=== PATIENT | female | born 1990 | race Caucasian/White ===

== ENCOUNTER 2016-06-18 18:06 | Emergency (ER) | payer OTHER ==
[~2016-06-18] VITALS: Ht 165.1 cm; Wt 83.0 kg
[~2016-06-18 18:06] MED LIST: CYCL5TAB PO; DICL75 PO; NORC7.5T PO; PREN0.01 PO; ZOFR8TAB4 PO
[2016-06-18 18:08] VITALS: BP 117/81; PULSE 99; RESP 17; TEMP 97.9; O2SAT 99
[2016-06-18] MEDS ORDERED: JUNETAB2 PO (18:24)
[2016-06-18] MEDS ORDERED: SODIUM CHLOR 0.9% 1000 ML INJ 1,000 ML IV ONE (18:26)
[2016-06-18] MEDS ORDERED: SODIUM CHLORIDE 0.9% FLUSH 10 ML FLUSH IVF PRN (18:30)
--- NOTE | 2016-06-18 18:37 | PD ---
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 Patient reports that she had her last normal mental cycle on April 28, 2016, patient reports that she was a week late on her period and reports that she did take a test at that time which was negative. She did call her index editor, Dr. Marion and was instructed to continue her control pills. Patient reports that she thought that something was off as she had not gotten her period , reports that this week, she took 3 tests all which were positive. Patient reports that she had some spotting and bleeding and lower abdominal cramping one hour prior to arrival to ER. Patient was concerned that she may be miscarrying so she came to the ER for evaluation. Patient denies abdominal cramping or pain at this time. PFSH Past Medical History Autoimmune Disease: No Blood Disorders: No Cancer: No Cardiovascular Problems: No Diabetes: No Diminished Hearing: No Endocrine: No Gastrointestinal Disorders: Yes (GI BLEED) GERD: Yes Glaucoma: No Genitourinary: No Hepatitis: No Hypertension: No Immune Disorder: No Implanted Vascular Access Dvce: No Medical other: No Musculoskeletal: No Neurologic: No Psychiatric: No Reproductive: No Respiratory: No Thyroid Disease: No Influenza Vaccination: No ?: Unknown LMP: 04/28/16 Past Surgical History Abdominal Surgery: No Section: Yes Ear Surgery: No Endocrine Surgery: No Genitourinary Surgery: No Gynecologic Surgery: No Neurologic Surgery: No Oral Surgery: No Pacemaker: No Thoracic Surgery: No Other Surgery: No Social History Alcohol Use: Yes (OCCASIONAL) Tobacco Use: No Substance Use: No Allergies-Medications (Allergen,Severity, Reaction): Coded Allergies: No Known Allergies (Verified , 06/18/16) Reported Meds & Prescriptions Reported Meds & Active Scripts Active Reported (Norethindrone-Ethinyl Estradiol) 1.5-30 Mg-Mcg Tab 1 Tab PO DAILY Review of Systems General / Constitutional: No: Fever Eyes: No: Visual changes HENT: No: Headaches Cardiovascular: No: Chest Pain or Discomfort Respiratory: No: Shortness of Breath Gastrointestinal: No: Abdominal Pain Genitourinary: Positive: Vaginal Bleeding, No: Dysuria Musculoskeletal: No: Pain Skin: No Rash Neurologic: No: Weakness Psychiatric: No: Depression Endocrine: No: Polydipsia Hematologic/Lymphatic: No: Easy Bruising Physical Exam Narrative GENERAL: No acute distress, nontoxic SKIN: Focused skin assessment warm/dry. HEAD: Atraumatic. Normocephalic. EYES: Pupils equal and round. No scleral icterus. No injection or drainage. ENT: No nasal bleeding or discharge. Mucous membranes pink and moist. NECK: Trachea midline. No JVD. CARDIOVASCULAR: Regular rate and rhythm. No murmur appreciated. RESPIRATORY: No accessory muscle use. Clear to auscultation. Breath sounds equal bilaterally. GASTROINTESTINAL: Abdomen soft, non-tender, nondistended. Hepatic and splenic margins not palpable. : exam preformed with RN at bedside. Patient no light brown vaginal discharge. Patient with no CMT or adnexal tenderness. Cervical os is closed MUSCULOSKELETAL: No obvious deformities. No clubbing. No cyanosis. No edema. NEUROLOGICAL: Awake and alert. No obvious cranial nerve deficits. Motor grossly within normal limits. Normal speech. PSYCHIATRIC: Appropriate mood and affect; insight and judgment normal. Data Data Last Documented VS Vital Signs Date Time Temp Pulse Resp B/P Pulse Ox O2 Delivery O2 Flow Rate FiO2 06/18/16 18:08 97.9 99 17 117/81 99 Orders Beta Hcg (Quant/Titer) (06/18/16 18:26) Complete Blood Count With Diff (06/18/16 18:26) Basic Metabolic Panel (Bmp) (06/18/16 18:26) Gc And Chlamydia Pcr (06/18/16 18:26) Complete Rh (06/18/16 18:26) Type And Screen (06/18/16 18:26) Wet Prep Profile (06/18/16 18:26) Urinalysis - C+S If Indicated (06/18/16 18:26) Iv Access Insert/Monitor (06/18/16 18:26) Sodium Chloride 0.9% Flush (Ns Flush) (06/18/16 18:30) Sodium Chlor 0.9% 1000 Ml Inj (Ns 1000 M (06/18/16 18:26) Ed Urine Pregnancytest Poc (06/18/16 18:26) MDM Medical Decision Making Medical Screen Exam Complete: Yes Emergency Medical Condition: Yes Interpretation(s) Vital Signs Date Time Temp Pulse Resp B/P Pulse Ox O2 Delivery O2 Flow Rate FiO2 06/18/16 18:08 97.9 99 17 117/81 99 Differential Diagnosis Threatened miscarriage versus miscarriage versus irregular vaginal bleeding with versus ectopic Narrative Course 25-year-old female who is [id number], presents to emergency room with complaints of irregular vaginal spotting and bleeding and cramping. Patient reports that her last take her menstrual cycle was on April 28, 2016. Patient estimated gestational age would be 7 weeks and 2 days. On pelvic exam, patient had some light brown vaginal discharge. Patient with no abdominal pain at this time. Plan to obtain blood work including hCG Quant. Jessika Bansal DO June 18, 2016 18:37
[2016-06-18 19:05] VITALS: BP 113/64; PULSE 89; RESP 16; TEMP 99.1; O2SAT 98
[2016-06-18 19:16] LABS: AUTOMATED NEUTROPHIL # 10.1 TH/MM3 (1.8-7.7); BASOPHIL # 0.4 TH/MM3 (0-0.2); BASOPHIL % 2.4 % (0.0-2.0); EOSINOPHIL # 0.1 TH/MM3 (0-0.4); EOSINOPHIL % 0.5 % (0.0-4.0); HEMATOCRIT 41.2 % (35.0-46.0); LYMPHOCYTE # 3.2 TH/MM3 (1.0-4.8); MEAN CELL VOLUME 73.2 FL (80.0-100.0); MEAN CORPUSCULAR HEMOGLOBIN 23.4 PG (27.0-34.0); NEUT % 68.1 % (16.0-70.0); PLATELET COUNT 467 TH/MM3 (150-450); RED BLOOD COUNT 5.62 MIL/MM3 (4.00-5.30); RED CELL DISTRIBUTION WIDTH 15.5 % (11.6-17.2)
[2016-06-18 19:20] LABS: POTASSIUM 4.1 MEQ/L (3.5-5.1)
[2016-06-18 19:24] LABS: BICARBONATE 23.4 MEQ/L (21.0-32.0)
[2016-06-18 19:31] LABS: BLOOD, URINE TRACE (NEG); GLUCOSE,URINE NEG (NEG); KETONE, URINE TRACE mg/dL (NEG); NITRITE,URINE NEG (NEG); PH, URINE 5.5 (5.0-8.5)
[2016-06-18 19:34] LABS: HEMO FLAGS AUTO DIFF
[2016-06-18 19:36] LABS: URINE COLOR YELLOW (YELLW/STRAW)
[2016-06-18 19:37] LABS: MUCUS URINE MOD /lpf (OCC); RBC, URINE 0-3 /hpf (0-3); SQUAMOUS EPITHELIAL CELL URINE 0-5 /hpf (0-5); WBC, URINE 0-2 /hpf (0-5)
[2016-06-18 19:38] LABS: COMMENT (UR) CULT NOT INDICATED; CULTURE IF INDICATED CULT NOT INDICATED
[2016-06-18 19:43] LABS: PLATELET ESTIMATE SMEAR HIGH (NORMAL); PLATELET MORPHOLOGY NORMAL (NORMAL); SCAN/DIFF AUTO DIFF CONFIRMED
--- NOTE | 2016-06-18 19:59 | PD ---
Data Data Last Documented VS Vital Signs Date Time Temp Pulse Resp B/P Pulse Ox O2 Delivery O2 Flow Rate FiO2 06/18/16 19:05 99.1 89 16 113/64 98 Room Air Orders Beta Hcg (Quant/Titer) (06/18/16 18:26) Complete Blood Count With Diff (06/18/16 18:26) Basic Metabolic Panel (Bmp) (06/18/16 18:26) Gc And Chlamydia Pcr (06/18/16 18:26) Complete Rh (06/18/16 18:) Wet Prep Profile (06/18/16 18:) Urinalysis - C+S If Indicated (06/18/16 18:26) Iv Access Insert/Monitor (06/18/16 18:26) Sodium Chloride 0.9% Flush (Ns Flush) (06/18/16 18:30) Sodium Chlor 0.9% 1000 Ml Inj (Ns 1000 M (06/18/16 18:26) Ed Urine Pregnancytest Poc (06/18/16 18:26) Labs Laboratory Tests Test 06/18/16 06/18/16 06/18/16 18:35 19:00 19:15 Clue Cells (Wet Prep) NONE SEEN Vaginal Trichomonas (Wet Prep) NONE SEEN Vaginal Yeast (Wet Prep) NONE SEEN White Blood Count 15.0 TH/MM3 Red Blood Count 5.62 MIL/MM3 Hemoglobin 13.2 GM/DL Hematocrit 41.2 % Mean Corpuscular Volume 73.2 FL Mean Corpuscular Hemoglobin 23.4 PG Mean Corpuscular Hemoglobin 32.0 % Concent Red Cell Distribution Width 15.5 % Platelet Count 467 TH/MM3 Mean Platelet Volume 7.6 FL Neutrophils (%) (Auto) 68.1 % Lymphocytes (%) (Auto) 21.0 % Monocytes (%) (Auto) 8.0 % Eosinophils (%) (Auto) 0.5 % Basophils (%) (Auto) 2.4 % Neutrophils # (Auto) 10.1 TH/MM3 Lymphocytes # (Auto) 3.2 TH/MM3 Monocytes # (Auto) 1.2 TH/MM3 Eosinophils # (Auto) 0.1 TH/MM3 Basophils # (Auto) 0.4 TH/MM3 CBC Comment AUTO DIFF Differential Comment AUTO DIFF CONFIRMED Platelet Estimate HIGH Platelet Morphology Comment NORMAL Sodium Level 139 MEQ/L Potassium Level 4.1 MEQ/L Chloride Level 105 MEQ/L Carbon Dioxide Level 23.4 MEQ/L Anion Gap 11 MEQ/L Blood Urea Nitrogen 12 MG/DL Creatinine 0.84 MG/DL Estimat Glomerular Filtration 81 ML/MIN Rate Random Glucose 92 MG/DL Calcium Level 8.6 MG/DL Human Chorionic Gonadotropin, 104 MIU/ML Quant Blood Type O POSITIVE Rho(D) Type POSITIVE Urine Color YELLOW Urine Turbidity CLEAR Urine pH 5.5 Urine Specific [place] 1.026 Urine Protein NEG mg/dL Urine Glucose (UA) NEG mg/dL Urine Ketones TRACE mg/dL Urine Occult Blood TRACE Urine Nitrite NEG Urine Bilirubin NEG Urine Leukocyte Esterase NEG Urine RBC 0-3 /hpf Urine WBC 0-2 /hpf Urine Squamous Epithelial 0-5 /hpf Cells Urine Mucus MOD /lpf Microscopic Urinalysis Comment CULT NOT INDICATED MDM Supervised Visit with AUG[facility]O: Yes Narrative Course 25 year-old woman, very early , some cramping and bleeding, signed out to me to follow-up on results of diagnostic testing. Labs show she is Rh+, mildly elevated white count, hCG 104, wet prep negative, serology is pending. Bedside ultrasound performed by Dr. Bansal failed to confirm IUP. At this point, differential diagnosis remains really normal IUP, threatened AB or miscarriage, or ectopic . She is not having any pain at this point. Patient thinks that she is very early . These 3 possibilities were discussed including explicitly that ectopic has not been excluded. She was told she needs repeat blood work in 48 hours. She has an OB , Dr. Marion, who she believes she can get this follow-up with. She'll call tomorrow morning. She agrees that if she cannot get this arranged for 48 hour repeat labs, then she will return to the emergency department to have it drawn. She also agrees to return for any worsening severe pain, or cramping. Diagnosis Primary Impression: Threatened Additional Instruction: Follow-up in 48 hours for repeat beta hCG blood work either with Dr. Marion, or here in the emergency department. Return to the emergency department for any worsening abdominal pain. Med/Other Pt SpecificInfo: No Change to Meds Disposition: 01 DISCHARGE HOME Condition: Stable Roly Davila MD June 18, 2016 19:59
[2016-06-18 20:23] VITALS: BP 129/68
[2016-06-18 23:33] LABS: CHLAMYDIA PCR NOT DETECTED (NOT DETECT); NEISSERIA PCR NOT DETECTED (NOT DETECT)
== END 2016-06-18 20:26 | disposition home or self-care (01) ==
LOC: PHED 18:06
DX: O26.851 Spotting complicating pregnancy, first trimester (principal); O20.0 Threatened abortion; Z3A.00 Weeks of gestation of pregnancy not specified; K21.9 Gastro-esophageal reflux disease without esophagitis
CPT/HCPCS: 80048; 81001; 84702; 84703; 85025; 87210; 87491; 87591; 96360; 99284; J7030

== ENCOUNTER 2016-06-20 13:01 | Emergency (ER) | payer OTHER ==
[~2016-06-20] VITALS: Ht 162.6 cm; Wt 84.1 kg
[~2016-06-20 13:01] MED LIST changes: -CYCL5TAB PO; -DICL75 PO; +JUNETAB2 PO; -NORC7.5T PO; -PREN0.01 PO; -ZOFR8TAB4 PO
[2016-06-20 13:06] VITALS: BP 106/74; PULSE 85; RESP 18; TEMP 97.8; O2SAT 98
--- NOTE | 2016-06-20 13:34 | PD ---
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 Pt was seen at [place] 2 days ago for abdominal cramping and vaginal spotting and had bHCG of 104. Pt currently does not have any abdominal pain or vaginal bleeding. Denies any fever, chest pain, sob, n/v, urinary complaints, vaginal discharge, back pain or weakness, numbness. Pt states she called her OBGYN Dr. Marion for the repeat bHCG but was unable to go there so came to the ED instead. Pt does not really know LMP but thinks it is around 04/28/16. PFSH Past Medical History Autoimmune Disease: No Blood Disorders: No Cancer: No Cardiovascular Problems: No Diabetes: No Diminished Hearing: No Endocrine: No Gastrointestinal Disorders: Yes (GI BLEED PAST) GERD: Yes Glaucoma: No Genitourinary: No Hepatitis: No Hypertension: No Immune Disorder: No Implanted Vascular Access Dvce: No Musculoskeletal: No Neurologic: No Psychiatric: No Reproductive: No Respiratory: No Immunizations Current: Yes Thyroid Disease: No Tetanus Vaccination: < 5 Years Influenza Vaccination: No ?: LMP: 04/28/16 : 3 Para: 2 Past Surgical History Abdominal Surgery: Yes (LAP FOR ENDOMETRIOSIS) Section: Yes (X2) Ear Surgery: No Endocrine Surgery: No Genitourinary Surgery: No Gynecologic Surgery: No Neurologic Surgery: No Oral Surgery: No Pacemaker: No Thoracic Surgery: No Other Surgery: No Social History Alcohol Use: Yes (OCCASIONAL) Tobacco Use: No Substance Use: No Allergies-Medications (Allergen,Severity, Reaction): Coded Allergies: No Known Allergies (Verified , 06/20/16) Reported Meds & Prescriptions Reported Meds & Active Scripts Active Reported (Norethindrone-Ethinyl Estradiol) 1.5-30 Mg-Mcg Tab 1 Tab PO DAILY Review of Systems Except as stated in HPI: all other systems reviewed are Neg Physical Exam Narrative GENERAL: 25yo F not in distress. SKIN: Focused skin assessment warm/dry. HEAD: Atraumatic. Normocephalic. CARDIOVASCULAR: Regular rate and rhythm. No murmur appreciated. RESPIRATORY: No accessory muscle use. Clear to auscultation. Breath sounds equal bilaterally. GASTROINTESTINAL: Abdomen soft, non-tender, nondistended. No rebound tenderness or guarding. BACK: No CVA tenderness. PELVIC: Small amount of white discharge, appears physiologic. Small amount of blood from cervical os. Cervical os is closed. No CMT or adnexal tenderness bilaterally. MUSCULOSKELETAL: No obvious deformities. No clubbing. No cyanosis. No edema. NEUROLOGICAL: Awake and alert. No obvious cranial nerve deficits. Motor grossly within normal limits. Normal speech. PSYCHIATRIC: Appropriate mood and affect; insight and judgment normal. Data Data Last Documented VS Vital Signs Date Time Temp Pulse Resp B/P Pulse Ox O2 Delivery O2 Flow Rate FiO2 06/20/16 14:32 71 18 112/76 99 Room Air 06/20/16 13:06 97.8 Orders Beta Hcg (Quant/Titer) (06/20/16 13:24) Gc And Chlamydia Pcr (06/20/16 14:17) Wet Prep Profile (06/20/16 14:17) Labs Laboratory Tests Test 06/20/16 06/20/16 13:25 14:15 Human Chorionic Gonadotropin, 213 MIU/ML Quant Clue Cells (Wet Prep) NONE SEEN Vaginal Trichomonas (Wet Prep) NONE SEEN Vaginal Yeast (Wet Prep) NONE SEEN MDM Medical Decision Making Medical Screen Exam Complete: Yes Emergency Medical Condition: Yes Interpretation(s) Laboratory Tests Test 06/20/16 13:25 Human Chorionic Gonadotropin, 213 MIU/ML Quant (0-5) Differential Diagnosis Threatened vs. complete vs. ectopic Narrative Course 25yo F here for repeat bHCG. Pt currently has no symptoms. bHCG today is 213 which is doubled from 2 days ago and appropriate. This is still too early to see anything on ultrasound. Pt has no abdominal pain or vaginal bleeding although pelvic exam showed some white physiologic discharge and had a small amount of blood from cervical os. Cervical os is closed. Wet prep negative. Pt's blood type is O+ from 2 days ago. Pt has OBGYN Dr. Marion and will follow up with him as outpatient. Pt understands that pt can still have an ectopic and we dont have an ultrasound to confirm intrauterine . Instructed pt to return immediately if she have any abdominal pain, vaginal bleeding, vomiting or any other concerning symptoms. Diagnosis Primary Impression: Early stage of Patient Instructions: General Instructions Departure Forms: Tests/Procedures Additional Instructions: Please follow up with your OBGYN in 2 days. Please return to the ED if you have any abdominal pain, vaginal bleeding, vomiting, or any other concerning symptoms. Med/Other Pt SpecificInfo: No Change to Meds Disposition: 01 DISCHARGE HOME Condition: Stable BeatrizKaren DO June 20, 2016 13:34
[2016-06-20 13:56] LABS: BETA HCG QUANT 213 MIU/ML (0-5)
[2016-06-20 14:32] VITALS: BP 112/76; PULSE 71; RESP 18; O2SAT 99
[2016-06-20 18:26] LABS: CHLAMYDIA PCR NOT DETECTED (NOT DETECT); NEISSERIA PCR NOT DETECTED (NOT DETECT)
== END 2016-06-20 14:48 | disposition home or self-care (01) ==
LOC: PHED 13:01
DX: O26.91 Pregnancy related conditions, unspecified, first trimester (principal); N89.8 Other specified noninflammatory disorders of vagina; K21.9 Gastro-esophageal reflux disease without esophagitis
CPT/HCPCS: 84702; 87210; 87491; 87591; 99284